=== PATIENT | male | born 1970 ===

== ENCOUNTER 2016-05-13 12:21 | Emergency (ER) | payer BC ==
[2016-05-13 21:31] LABS: Hematocrit 46 % (42-52); Hemoglobin 15.2 g/dl (14.0-18.0); Mean Corpuscular HGB Conc 33 g/dl (31-36); Mean Corpuscular Hemoglobin 30 pg (27-31); Mean Corpuscular Volume 91 fL (80-94); Mean Platelet Volume 9 um3 (7.4-10.4); Red Blood Count 5.01 10^6/ul (4.0-5.4); Red Cell Distribution Width 13 % (10.5-15); White Blood Count 8.7 10^3/ul (3.5-10.8)
[2016-05-13 21:47] LABS: Albumin 4.4 g/dL (3.2-5.2); BUN/Creatinine Ratio 16.5 (8-20); Calcium 9.6 mg/dL (8.6-10.3); EGFR African American 126.5 (>60); EGFR Non-African American 98.4 (>60); Magnesium 2.2 mg/dL (1.9-2.7); Potassium 3.7 mmol/L (3.5-5.0); Total Bilirubin 0.4 mg/dL (0.2-1.0); Total Protein 7.4 g/dL (6.4-8.9)
--- NOTE | 2016-05-13 21:50 | ED ---
Jeffrey Mack Erika, scribed for Kendell Bailey MD on 05/13/16 at 2036 . Complex/Multi-Sys Presentation - HPI Summary HPI Summary: Patient is a 45-year-old male presenting to the ED with a CC of fatigue for a few weeks. Pt reports that he has been experiencing intermittent pain in his arms and shoulder blades. He also states he is intermittently dizzy, and that he has been urinating frequently. Pt also reports a few episodes in the past few weeks that he describes as possible anxiety attacks - he will experience SOB and palpitations while sitting at work. Pt denies fever and recent weight loss. Currently, he denies any pain. Pt came to the ED today because symptoms have worsened in the past few days. He reports that he most recently saw his PCP about 1 year ago. FHx diabetes - mother. - History Of Current Complaint Chief Complaint: EDDysrhythmPalp Time Seen by Provider: 05/13/16 20:06 Hx Obtained From: Patient Onset/Duration: Gradual Onset, Lasting Weeks, Worse Since - 3 days Timing: Intermittent, Lasting:, Minutes Severity Currently: Mild Severity Initially: Moderate Location: Pain At: - shouler blades and arms Associated Signs And Symptoms: Positive: Dizziness, SOB, Palpitations, Other - Fatigue, frequent urination. Negative: Fever - Allergies/Home Medications Allergies/Adverse Reactions: Allergies Allergy/AdvReac Type Severity Reaction Status Date / Time No Known Allergies Allergy Verified 08/14/15 15:49 PMH/Surg Hx/FS Hx/Imm Hx Cardiovascular History: Reports: Hx Hypercholesterolemia GI History: Reports: Hx Diverticulosis - Surgical History Surgery Procedure, Year, and Place: fasciotomy right leg, left tibial plateau fracture Infectious Disease History: No Infectious Disease History: Reports: Hx Shingles Denies: History Other Infectious Disease, Traveled Outside the [place] in Last 30 Days - Family History Known Family History: Positive: Hypertension, Diabetes - Social History Lives: With Family Alcohol Use: Weekly Alcohol Amount: weekend- 3 beers Hx Substance Use: No Substance Use Type: Reports: None Hx Tobacco Use: No Smoking Status (MU): Never Smoked Tobacco Review of Systems Positive: Fatigue. Negative: Fever Positive: Palpitations Positive: Shortness Of Breath Positive: frequency Musculoskeletal: Other - pain in arms and shoulder blades Neurological: Other - dizziness All Other Systems Reviewed And Are Negative: Yes Physical Exam Triage Information Reviewed: Yes Vital Signs On Initial Exam: Initial Vitals Temp Pulse Resp BP Pulse Ox 97.8 F 74 16 148/80 100 05/13/16 12:27 05/13/16 12:27 05/13/16 12:27 05/13/16 12:27 05/13/16 12:27 Vital Signs Reviewed: Yes Appearance: Positive: Well-Appearing, No Pain Distress Skin: Positive: Warm Head/Face: Positive: Normal Head/Face Inspection Eyes: Positive: GREY ENT: Positive: Hearing grossly normal Neck: Positive: Supple Respiratory/Lung Sounds: Positive: Clear to Auscultation, Breath Sounds Present Cardiovascular: Positive: Normal, RRR. Negative: Murmur Abdomen Description: Positive: Nontender, No Organomegaly, Soft Bowel Sounds: Positive: Present Neurological: Positive: Sensory/Motor Intact, Alert, Oriented to Person Place, Time, Normal Gait Psychiatric: Positive: Normal Diagnostics - Vital Signs Vital Signs Temp Pulse Resp BP Pulse Ox 05/13/16 18:36 98.7 F 80 18 142/83 100 05/13/16 12:27 97.8 F 74 16 148/80 100 - Laboratory Lab Results: Lab Results 05/13/16 05/13/16 Range/Units 21:00 21:00 WBC 8.7 (3.5-10.8) 10^3/ul RBC 5.01 (4.0-5.4) 10^6/ul Hgb 15.2 (14.0-18.0) g/dl Hct 46 (42-52) % MCV 91 (80-94) fL MCH 30 (27-31) pg MCHC 33 (31-36) g/dl RDW 13 (10.5-15) % Plt Count 253 (150-450) 10^3/ul MPV 9 (7.4-10.4) um3 Neut % (Auto) 51.1 (38-83) % Lymph % (Auto) 37.2 (25-47) % [place] % (Auto) 10.0 H (1-9) % Eos % (Auto) 1.4 (0-6) % Baso % (Auto) 0.3 (0-2) % Absolute Neuts (auto) 4.4 (1.5-7.7) 10^3/ul Absolute Lymphs (auto) 3.2 (1.0-4.8) 10^3/ul Absolute Monos (auto) 0.9 H (0-0.8) 10^3/ul Absolute Eos (auto) 0.1 (0-0.6) 10^3/ul Absolute Basos (auto) 0 (0-0.2) 10^3/ul Absolute Nucleated RBC 0.01 10^3/ul Nucleated RBC % 0.1 Sodium 136 (133-145) mmol/L Potassium 3.7 (3.5-5.0) mmol/L Chloride 103 (101-111) mmol/L Carbon Dioxide 28 (22-32) mmol/L Anion Gap 5 (2-11) mmol/L BUN 14 (6-24) mg/dL Creatinine 0.85 (0.67-1.17) mg/dL Est GFR ( Amer) 126.5 (>60) Est GFR (Non-Af Amer) 98.4 (>60) BUN/Creatinine Ratio 16.5 (8-20) Glucose 94 (70-100) mg/dL Calcium 9.6 (8.6-10.3) mg/dL Magnesium 2.2 (1.9-2.7) mg/dL Total Bilirubin 0.40 (0.2-1.0) mg/dL AST 21 (13-39) U/L ALT 32 (7-52) U/L Alkaline Phosphatase 50 (34-104) U/L Troponin I 0.00 (<0.04) ng/mL Total Protein 7.4 (6.4-8.9) g/dL Albumin 4.4 (3.2-5.2) g/dL Globulin 3.0 (2-4) g/dL Albumin/Globulin Ratio 1.5 (1-3) Pertinent Lab Values Are: WNL Result Diagrams: 05/13/16 21:00 05/13/16 21:00 Lab Statement: Any lab studies that have been ordered have been reviewed, and results considered in the medical decision making process. - EKG 13:01 Cardiac Rate: NL - at 76 bpm EKG Rhythm: Sinus Rhythm Re-Evaluation - Re-Evaluation First Eval Re-Evaluation Time: 21:51 Change: Improved Comment: Patient is feeling better and will be discharged Complex Multi-Symp Course/Dx Assessment/Plan: A 45 y/o M presents to the ED with a CC of fatigue. Blood work WNL. EKG shows NSR. Patient feels improved in the ED so will be discharged home with follow up from his PCP. - Diagnoses Provider Diagnoses: Fatigue Discharge - Discharge Plan Condition: Stable Disposition: HOME Patient Education Materials: Fatigue (ED) Referrals: Mitchell Tineo MD [Primary Care Provider] - Additional Instructions: Please follow up with your PCP The documentation as recorded by the Jeffrey bowers Erika accurately reflects the service I personally performed and the decisions made by Lynn brunson David, MD.
[2016-05-13 22:35] VITALS: BP 126/90
== END 2016-05-13 22:34 | disposition home or self-care (01) ==
LOC: ED 12:21
DX: R53.83 Other fatigue (principal); R42 Dizziness and giddiness; R00.2 Palpitations; R06.02 Shortness of breath
CPT/HCPCS: 36415; 80053; 83735; 84484; 85025; 93005; 99283

== ENCOUNTER 2016-11-21 15:59 | Emergency (ER) | payer BC ==
[2016-11-21 16:47] VITALS: BP 122/84
--- NOTE | 2016-11-21 18:10 | UC ---
Lower Extremity/Ankle HPI - HPI Summary HPI Summary: complaint of right foot pain below great toe started approx 1.5 weeks ago worse with walking constant aching pain- non radiating pain tried some new shoes without relief used ice and ibuprofen with some relief yesterday denies trauma, fever - History of Current Complaint Chief Complaint: UCLowerExtremity Stated Complaint: FOOT PAIN Time Seen by Provider: 11/21/16 17:55 Hx Obtained From: Patient - Allergies/Home Medications Allergies/Adverse Reactions: Allergies Allergy/AdvReac Type Severity Reaction Status Date / Time No Known Allergies Allergy Verified 11/21/16 16:46 PMH/Surg Hx/FS Hx/Imm Hx Previously Healthy: Yes GI/ History: Gastroesophageal Reflux Psychological History: Anxiety - Surgical History Surgical History: Yes Surgery Procedure, Year, and Place: fasciotomy right leg, left tibial plateau fracture - Family History Known Family History: Positive: Hypertension, Diabetes Negative: Cardiac Disease - Social History Occupation: Employed Full-time Lives: With Family Alcohol Use: Weekly Alcohol Amount: weekend- 3 beers Substance Use Type: None Smoking Status (MU): Never Smoked Tobacco - Immunization History Most Recent Influenza Vaccination: season Most Recent Tetanus Shot: within last 5 years Review of Systems Constitutional: Negative Skin: Negative Eyes: Negative ENT: Negative Respiratory: Negative Cardiovascular: Negative Gastrointestinal: Negative Genitourinary: Negative Motor: Negative Neurovascular: Negative Musculoskeletal: Other: - right foot pain Neurological: Negative Psychological: Negative All Other Systems Reviewed And Are Negative: Yes Physical Exam Triage Information Reviewed: Yes Appearance: No Pain Distress, Well-Nourished Vital Signs: Initial Vital Signs Temp 97.4 F 11/21/16 16:42 Pulse 74 11/21/16 16:42 Resp 18 11/21/16 16:42 BP 122/84 11/21/16 16:42 Pulse Ox 100 11/21/16 16:42 Vital Signs Reviewed: Yes Eyes: Positive: Conjunctiva Clear ENT: Positive: Pharynx normal, TMs normal Neck: Positive: No Lymphadenopathy Respiratory: Positive: Lungs clear, Normal breath sounds, No respiratory distress, No accessory muscle use Cardiovascular: Positive: RRR, No Murmur, Pulses Normal Abdomen Description: Positive: Nontender, Soft Bowel Sounds: Positive: Present Musculoskeletal: Positive: Other: - rightfoor- tenderness, edema warm to touch at base of 1st phalanx Neurological Exam: Normal Psychological Exam: Normal Skin Exam: Normal Lower Extremity Course/Dx - Differential Dx/Diagnosis Differential Diagnosis/HQI/PQRI: Fracture (Closed), Gout, Sprain, Strain Provider Diagnoses: gout Discharge - Discharge Plan Condition: Stable Disposition: HOME Prescriptions: Colchicine* [Colcrys*] 0.6 mg PO DAILY #3 tab Patient Education Materials: Gout (ED), Low Purine Diet (ED) Referrals: Mitchell Tineo MD [Primary Care Provider] - Additional Instructions: Please start colcichine as directed Increase fluids and rest tomorrow start ibuprofen 800 mg PO 3xday with food Please review your discharge instructions. If your symptoms do not improve please call your primary care provider or return to urgent care.
== END 2016-11-21 18:28 | disposition home or self-care (01) ==
LOC: UCEAST 15:59
DX: M10.9 Gout, unspecified (principal)
CPT/HCPCS: 99211; G0463